=== PATIENT | male | born 1980 | race African-American/Black ===

== ENCOUNTER 2019-12-10 02:47 | Emergency (ER) | payer OTHER, SELFPAY ==
[2019-12-10 03:17] LABS: #Basophils 0.1 thou/uL (0.0-0.2); #Eosinphils 0.1 thou/uL (0.0-0.7); #Monocytes 0.5 thou/uL (0.11-0.59); #Neutrophils 2.3 thou/uL (1.40-6.50); %Basophils 1.1 % (0.0-1.0); %Eosinophils 2.3 % (0.0-10.0); %Lymphocytes 40.4 % (21.0-51.0); %Monocytes 9.4 % (0.0-10.0); %Neutrophils 46.7 % (42.0-75.0); Mean Corpuscular HGB CONC 32.4 g/dL (32.0-36.0); Mean Corpuscular Hemoglobin 29.3 pg (27.0-31.0); Mean Corpuscular Volume 90.7 fL (78.0-98.0); Mean Platelet Volume 9.8 fL (7.4-10.4); Platelet Count 174 thou/uL (130-400); Red Blood Cell (RBC) Count 5.11 mill/uL (4.70-6.10)
[2019-12-10 03:34] LABS: ALT (SGPT) 31 U/L (8-55); AST (SGOT) 25 U/L (5-34); Albumin 4.1 g/dL (3.5-5.0); Alkaline Phosphatase 79 U/L (40-110); Anion Gap 11 mmol/L (10-20); BUN (Urea Nitrogen) 18 mg/dL (8.9-20.6); Bilirubin, Total 0.5 mg/dL (0.2-1.2); Calc. Creatinine Clearance 0 mL/min (70-130); Calcium 8.9 mg/dL (7.8-10.44); Carbon Dioxide 27 mmol/L (22-29); Chloride 105 mmol/L (98-107); Estimated GFR-MDRD 60; Glucose 110 mg/dL (70-105); Potassium 3.9 mmol/L (3.5-5.1); Protein, Total 7.1 g/dL (6.0-8.3); Sodium 139 mmol/L (136-145)
[2019-12-10] MEDS ORDERED: cloNIDine 0.1 MG TAB ONE ×2 (03:39→04:51)
[2019-12-10] MEDS ORDERED: hydrALAZINE 20 MG/ML VIAL ONE (06:04)
--- NOTE | 2019-12-10 09:26 | RAD ---
FRONTAL RADIOGRAPH CHEST: Date: 12/10/2019 COMPARISON: None. HISTORY: Hypertension. FINDINGS: Cardiac silhouette appears prominent. No pneumothorax, pleural fluid, focal consolidation, or alveola r edema. IMPRESSION: Prominent cardiac silhouette. This could be better assessed with PA and lateral imaging of the chest. Echocardiogram may be beneficial as well. POS: [facility]
== END 2019-12-10 06:50 | disposition home or self-care (01) ==
LOC: ERS 02:47
DX: I10 Essential (primary) hypertension (principal)
CPT/HCPCS: 36415; 71045; 80053; 84484; 85025; 93005; 96374; J0360